=== PATIENT | male | born 1950 | race Hispanic/Latino ===

== ENCOUNTER 2018-01-28 06:01 | Day surgery (SDC) | payer MEDICARE ==
[2018-01-22 08:04] VITALS: BMI 28.2
[2018-01-28 06:35] VITALS: RESP 20
[2018-01-28] MEDS ORDERED: Propofol 10 mg/ml Inj (20 ML) ONE (07:29)
[2018-01-28] MEDS ORDERED: Midazolam 2 MG/2 ML VIAL ONE ×2 (07:29→07:43)
[2018-01-28] MEDS ORDERED: Lidocaine 1% Inj (20ml) ONE (07:32)
[2018-01-28] MEDS ORDERED: Bupivacaine 0.5% Inj(30mL) ONE (07:32)
[2018-01-28] MEDS ORDERED: Lidocaine 1% Inj (20ml) IJ ONE ×2 (08:06)
[2018-01-28] MEDS ORDERED: Bupivacaine 0.5% Inj(30mL) IJ ONE ×2 (08:06)
--- NOTE | 2018-01-28 09:12 | PCM.SURG1 ---
Surgeon's Initial Post Op Note - Surgeon's Notes Surgeon: Dr. Mays Project Management Director: Aris Ross PGY2 Type of Anesthesia: IV Sedation, Local Pre-Operative Diagnosis: L scalp mass [id number] Operative Findings: L scalp mass [id number] Post-Operative Diagnosis: Same Operation Performed: Excision of L scalp mass with complex layered closure Specimen/Specimens Removed: L scalp mass [id number] Estimated Blood Loss: EBL {In ML}: 10 Blood Products Given: N/A Drains Used: No Drains Post-Op Condition: Good Date of Surgery/Procedure: 01/28/18 Time of Surgery/Procedure: 09:12
[2018-01-28] MEDS ORDERED: Oxycodone/Acetaminophen 5/325 mg Tab PO PRN (09:13)
[2018-01-28 10:18] VITALS: TEMP 97.7
[2018-01-28 10:22] VITALS: BP 124/68; PULSE 71; O2SAT 97
--- NOTE | 2018-01-28 20:21 | OP ---
PROCEDURE DATE: 01/28/2018 PREOPERATIVE DIAGNOSIS: A 4 x 6 cm mass of the posterior upper neck. POSTOPERATIVE DIAGNOSIS: Deep intramuscular posterior neck mass. PROCEDURE PERFORMED: Excision of the 4 x 6 cm deep intramuscular posterior neck mass. SURGEON: Alberto Mays MD MEDICAL DIRECTOR: Dr. Ross. ANESTHESIOLOGIST: Dr. Durant. TYPE OF ANESTHESIA: MAC and local anesthesia. ESTIMATED BLOOD LOSS: Minimal. SPECIMEN: Subcutaneous and intramuscular mass. INDICATIONS: The patient is a 68-year-old male with history of a mass growing on the posterior upper neck slightly to the left, associated tenderness and discomfort and causing him headaches. Patient was examined in the office, noted to have the mass which was suspected for lipoma and was scheduled for excision. DESCRIPTION OF PROCEDURE: The patient was brought to the operating room and placed on the operating table in supine position. The patient was connected to the EKG, blood pressure, and pulse oximetry monitors. The patient then underwentMAC anesthesia and was prepped and draped in the prone position. First, a standard timeout procedure took place and everybody in the room agreed as to the patient's identity, diagnosis, and procedure to be performed. First using lidocaine with some Marcaine, the area of incision was infiltrated and elliptical incision in skin was made in order to compensate for its base after excision of the wound. This incision was carried through the subcutaneous fat down to the fatty mass underneath it, which was extending all the way through the fascia into the neck muscles. Those were carefully incised and all the portion of the mass were excised from the muscle fibers. Once this was done and the mass was cut out in its entirety, we then proceeded with irrigating the wound copiously making sure that there was adequate hemostasis. I then proceeded with repairing the neck muscle fascia, using 3-0 Vicryl. Then we reapproximated the skin for a deep dermal layer using 3-0 Vicryl and subcuticular stitch of 4-0 Monocryl was used to close the skin completely. A Dermabond dressing was applied to the wound. Patient tolerated the procedure well and there were no complications. Patient had a sterile pressure dressing applied to the wound. The patient was awakened and transferred to the recovery room for further observation. Alberto Mays MD
== END 2018-01-28 10:50 | disposition home or self-care (01) ==
LOC: SDS 06:01
PROVIDERS: ATTEND General Practice
DX: D17.0 Benign lipomatous neoplasm of skin and subcutaneous tissue of head, face and neck (principal)
CPT/HCPCS: 21556; 88304; J0690; J1885; J2250; J2405; J2704; J3010; J7120